=== PATIENT | male | born 1945 | race Caucasian/White ===

== ENCOUNTER → 2019-08-24 | Outpatient (CLI) | payer MEDICARE, OTHER ==
[~2019-08-24] MED LIST: ASPI325; ASPI81CH; ASPI81CH PO; ATOR40TA; CLOP75 PO; METO50ER PO; TICA90TA PO
[2019-08-24 16:20] LABS: BASOPHILS ABSOLUTE AUTO 0.05 K/mm3 (0.00-0.23); BASOPHILS PERCENT AUTO 1 % (0-2); EOSINOPHILS ABSOLUTE AUTO 0.12 K/mm3 (0.00-0.68); EOSINOPHILS PERCENT AUTO 2 % (0-6); Hematocrit 41.8 % (37.0-53.0); Hemoglobin 13.9 g/dL (13.5-17.5); IMMATURE GRAN ABSOLUTE AUTO 0.01 K/mm3 (0.00-0.10); IMMATURE GRAN PERCENT AUTO 0 % (0-1); LYMPHOCYTES ABSOLUTE AUTO 1.18 K/mm3 (0.84-5.20); LYMPHOCYTES PERCENT AUTO 18 % (21-46); MONOCYTES ABSOLUTE AUTO 0.58 K/mm3 (0.16-1.47); MONOCYTES PERCENT AUTO 9 % (4-13); Mean Corpuscular HGB 29.8 pg (26.0-34.0); Mean Corpuscular HGB Conc 33.3 g/dL (31.5-36.5); Mean Corpuscular Volume 90 fL (80-100); Mean Platelet Volume 9.6 fL (9.1-12.4); NEUTROPHILS ABSOLUTE AUTO 4.47 K/mm3 (1.96-9.15); NEUTROPHILS PERCENT AUTO 70 % (41-73); Platelet Count 203 K/mm3 (150-400); RDW Coefficient Variation 12.9 % (11.7-14.2); RDW Standard Deviation 41.8 fL (35.1-46.3); Red Blood Cell Count 4.66 M/mm3 (4.30-5.90); White Blood Cell Count 6.41 K/mm3 (4.00-11.30)
[2019-08-24 16:37] LABS: Anion Gap 6 mmol/L (6-16); Blood Urea Nitrogen 16 mg/dL (8-24); Bun/Creatinine Ratio 14.2 (12.0-20.0); CO2, Blood 31 mmol/L (21-32); Chloride, Blood 103 mmol/L (98-108); Creatinine, Blood 1.13 mg/dL (0.60-1.20); Glomerular Filtration Rate >60 (60-); Glucose, Blood 145 mg/dL (70-99); Potassium, Blood 4.1 mmol/L (3.5-5.5); Sodium, Blood 140 mmol/L (136-145); Thyroid Stimulating Hormone 2.188 uIU/mL (0.360-4.800)
[2019-08-24 16:44] LABS: Troponin I <0.017 ng/mL (0.000-0.040)
== END | disposition home or self-care (01) ==
LOC: LAB SHORT 16:14 → LAB EV 16:14
PROVIDERS: Physician Assistant Surgical
DX: M62.81 Muscle weakness (generalized) (principal); R22.42 Localized swelling, mass and lump, left lower limb
CPT/HCPCS: 80048; 83880; 84443; 84484; 85025

== ENCOUNTER → 2019-09-13 | Outpatient (CLI) | payer MEDICARE, OTHER ==
[2019-09-13 10:31] LABS: BASOPHILS ABSOLUTE AUTO 0.05 K/mm3 (0.00-0.23); BASOPHILS PERCENT AUTO 1 % (0-2); EOSINOPHILS ABSOLUTE AUTO 0.08 K/mm3 (0.00-0.68); EOSINOPHILS PERCENT AUTO 2 % (0-6); Hematocrit 40.3 % (37.0-53.0); Hemoglobin 13.7 g/dL (13.5-17.5); IMMATURE GRAN ABSOLUTE AUTO 0.01 K/mm3 (0.00-0.10); IMMATURE GRAN PERCENT AUTO 0 % (0-1); LYMPHOCYTES PERCENT AUTO 22 % (21-46); MONOCYTES ABSOLUTE AUTO 0.48 K/mm3 (0.16-1.47); MONOCYTES PERCENT AUTO 10 % (4-13); Mean Corpuscular HGB 30.1 pg (26.0-34.0); Mean Corpuscular Volume 89 fL (80-100); Mean Platelet Volume 9.7 fL (9.1-12.4); NEUTROPHILS ABSOLUTE AUTO 3.33 K/mm3 (1.96-9.15); NEUTROPHILS PERCENT AUTO 66 % (41-73); Platelet Count 214 K/mm3 (150-400); RDW Coefficient Variation 12.7 % (11.7-14.2); RDW Standard Deviation 40.9 fL (35.1-46.3); Red Blood Cell Count 4.55 M/mm3 (4.30-5.90); White Blood Cell Count 5.05 K/mm3 (4.00-11.30)
[2019-09-13 10:40] LABS: Alanine Aminotransfer (ALT/SGP 74 U/L (12-78); Albumin, Blood 3.7 g/dL (3.4-5.0); Albumin/Globulin Ratio 1.2 (0.8-1.8); Alk Phos 99 U/L (40-126); Anion Gap 8 mmol/L (6-16); Aspartate Aminotrans (AST/SGOT 31 U/L (12-37); Bilirubin, Total 1.1 mg/dL (0.1-1.0); Blood Urea Nitrogen 19 mg/dL (8-24); Bun/Creatinine Ratio 17.1 (12.0-20.0); CO2, Blood 29 mmol/L (21-32); Calcium, Blood 9.6 mg/dL (8.5-10.1); Chloride, Blood 101 mmol/L (98-108); Creatinine, Blood 1.11 mg/dL (0.60-1.20); Glomerular Filtration Rate >60 (60-); Glucose, Blood 202 mg/dL (70-99); Potassium, Blood 4.5 mmol/L (3.5-5.5); Sodium, Blood 138 mmol/L (136-145); Total Protein, Blood 6.7 g/dL (6.4-8.2)
[2019-09-13 11:03] LABS: Troponin I <0.017 ng/mL (0.000-0.040)
== END | disposition home or self-care (01) ==
LOC: LAB EV 10:21 → LAB SHORT 10:21
PROVIDERS: Physician Assistant
DX: J44.9 Chronic obstructive pulmonary disease, unspecified (principal); R00.1 Bradycardia, unspecified; R53.83 Other fatigue
CPT/HCPCS: 80053; 83880; 84443; 84484; 85025

== ENCOUNTER 2019-11-27 09:25 | Day surgery (SDC) | payer MEDICARE, OTHER ==
[~2019-11-27] VITALS: Ht 177.8 cm; Wt 114.0 kg
[~2019-11-27 09:25] MED LIST changes: -ASPI81CH; -ATOR40TA; +ATOR40TA PO; +LISI10 PO
--- NOTE | 2019-11-27 18:07 | NUR ---
[facility]END[facility] RECOVERY DAYSHIFT SUMMARY PATIENT ARRIVED FROM RECOVERY ROOM 4 HOURS POST PROCEDURE - LEFT UPPER CHEST WALL DUAL CHAMBER PACEMAKER SITE WNL WITH SURGICAL DRESSING IN PLACE AND NO S/SX OF BLEEDING. POST OF VITALS COMPLETED IN RECOVERY ROOM PER DYE PENETRANT TESTING TECHNICIAN. PATIENT DENIED PAIN T/O SHIFT. VSS, ON ROOM AIR. LUNG SOUND CLEAR. NO EDEMA NOTED. CALL LIGHT W/I REACH, PATIENT EDUCATED TO FALL PRECAUTIONS AND ROOM ORIENTATION. DENIES ANY NEEDS. ATE WELL. WILL CONTINUE TO MONITOR AND REPORT TO NOC SHIFT RN.
--- NOTE | 2019-11-28 05:34 | NUR ---
SHIFT SUMMARY PT SLEEPING IN ROOM COMFORTABLY AT THIS TIME. NO ACUTE CHANGES IN STATUS T/O NIGHT. PT SLEPT WELL DENIED NEEDS. PT INDEPENDENT IN ROOM TO RR. PT MEDCIATED ONCE WITH IV ABX. PACEMAKER SITE WNL, AND BANDAGE IN PLACE. PT AWARE OF EDUCATION ON NOT USING L ARM. REPS EVEN UNLABORED ON RA W/ SATS >92%. DENIED OTHER NEEDS CALL LIGHT IN REACH.
--- NOTE | 2019-11-28 11:30 | NUR ---
DISCHARGE INSTRUCTIONS GONE OVER WITH PT AND FAMILY. INSTRUCTED PT ON CARE OF NEW PACEMAKER AND PRECAUTIONS. INFORMED PT OF FOLLOW UP VISITS FOR PACEMAKER AND PT STATED UNDERSTANDING. BELONGINGS WERE GATHERED AND GIVEN TO PT'S . PT WAS ESCORTED OUT BY RN VIA WHEELCHAIR.
== END 2019-11-28 11:39 | disposition home or self-care (01) ==
LOC: MHTC 09:25 → PCU 14:23 → MHTC 11-28 11:39
DX: I49.5 Sick sinus syndrome (principal); I10 Essential (primary) hypertension; E78.5 Hyperlipidemia, unspecified; E66.9 Obesity, unspecified; J44.9 Chronic obstructive pulmonary disease, unspecified; I49.3 Ventricular premature depolarization; I25.10 Atherosclerotic heart disease of native coronary artery without angina pectoris; Z95.5 Presence of coronary angioplasty implant and graft; Z79.82 Long term (current) use of aspirin; Z79.899 Other long term (current) drug therapy; Z87.891 Personal history of nicotine dependence; Z68.36 Body mass index [BMI] 36.0-36.9, adult
CPT/HCPCS: 33208; 71045; 71046; 76937; 93005; 93010; 99152; 99153; A9270-GY; C1785; C1894; C1898; J0690; J1644; J2250; J3010; J7030; J7040

== ENCOUNTER → 2020-04-11 | Outpatient (CLI) | payer MEDICARE, OTHER ==
[~2020-04-11] MED LIST changes: +METO100ER PO; +Nitroglycerin1 EAC3 TOP
[2020-04-11 11:00] LABS: BASOPHILS ABSOLUTE AUTO 0.04 K/mm3 (0.00-0.23); BASOPHILS PERCENT AUTO 1 % (0-2); EOSINOPHILS ABSOLUTE AUTO 0.07 K/mm3 (0.00-0.68); EOSINOPHILS PERCENT AUTO 1 % (0-6); Hematocrit 41.2 % (37.0-53.0); Hemoglobin 13.7 g/dL (13.5-17.5); IMMATURE GRAN ABSOLUTE AUTO 0.02 K/mm3 (0.00-0.10); IMMATURE GRAN PERCENT AUTO 0 % (0-1); LYMPHOCYTES ABSOLUTE AUTO 0.89 K/mm3 (0.84-5.20); LYMPHOCYTES PERCENT AUTO 15 % (21-46); MONOCYTES ABSOLUTE AUTO 0.54 K/mm3 (0.16-1.47); MONOCYTES PERCENT AUTO 9 % (4-13); Mean Corpuscular HGB Conc 33.3 g/dL (31.5-36.5); Mean Corpuscular Volume 90 fL (80-100); Mean Platelet Volume 10.3 fL (9.1-12.4); NEUTROPHILS ABSOLUTE AUTO 4.21 K/mm3 (1.96-9.15); NEUTROPHILS PERCENT AUTO 73 % (41-73); Platelet Count 184 K/mm3 (150-400); RDW Coefficient Variation 12.6 % (11.7-14.2); RDW Standard Deviation 41.1 fL (35.1-46.3); Red Blood Cell Count 4.57 M/mm3 (4.30-5.90); White Blood Cell Count 5.77 K/mm3 (4.00-11.30)
[2020-04-11 11:18] LABS: Alanine Aminotransfer (ALT/SGP 46 U/L (12-78); Albumin, Blood 3.6 g/dL (3.4-5.0); Albumin/Globulin Ratio 1.2 (0.8-1.8); Alk Phos 101 U/L (40-126); Anion Gap 6 mmol/L (6-16); Aspartate Aminotrans (AST/SGOT 20 U/L (12-37); Blood Urea Nitrogen 10 mg/dL (8-24); Bun/Creatinine Ratio 10.6 (12.0-20.0); CO2, Blood 30 mmol/L (21-32); Calcium, Blood 8.9 mg/dL (8.5-10.1); Chloride, Blood 102 mmol/L (98-108); Creatinine, Blood 0.94 mg/dL (0.60-1.20); Free Thyroxine 1.02 ng/dL (0.70-1.60); Globulin, Blood 3.1 g/dL (2.2-4.0); Glomerular Filtration Rate >60 (60-); Glucose, Blood 202 mg/dL (70-99); Potassium, Blood 4.3 mmol/L (3.5-5.5); Sodium, Blood 138 mmol/L (136-145); Thyroid Stimulating Hormone 2.452 uIU/mL (0.360-4.800); Total Protein, Blood 6.7 g/dL (6.4-8.2)
== END | disposition home or self-care (01) ==
LOC: LAB SHORT 10:55
PROVIDERS: General Practice
DX: H83.09 Labyrinthitis, unspecified ear (principal); R53.81 Other malaise
CPT/HCPCS: 80053; 83880; 84439; 84443; 85025

== ENCOUNTER 2020-07-16 06:26 | Day surgery (SDC) | payer MEDICARE, OTHER ==
[~2020-07-16] VITALS: Ht 177.8 cm; Wt 109.0 kg
--- NOTE | 2020-07-16 09:05 | NUR ---
PATIENT RETURNED TO THE [facility] POST CORONARY ANGIOGRAM. NO NEW STENTS OR INTERVENTION PERFORMED. TR BAND TO THE RIGHT RADIAL WITH 12 ML OF AIR IN THE BAND PLACED AT 0845. PATIENT IN A RECLINER AND PLACED ON THE MONITOR AND CALL LIGHT IN REACH. VVS. NO PAIN NOTED. PATIENT CALLED HIS AND UPDATED HER THAT HE WAS BACK IN RECOVERY. SHE WILL COME TO THE BEDSIDE. PATIENT IN A RECLINER.
--- NOTE | 2020-07-16 09:40 | NUR ---
AT THE BEDSIDE, FINISHING BREAKFAST TRAY.
--- NOTE | 2020-07-16 10:40 | NUR ---
REMAINS AT THE BEDSIDE. BEGAN TAKING AIR FORM THE TR BAND. NO BLEEDING NOTED. WILL CONTINUE TO MONITOR.
--- NOTE | 2020-07-16 10:44 | NUR ---
TEACHING DONE AT THE BEDSIDE FOR DISCHARGE INSTRUCTIONS. EXPLAINED TO THE PATIENT AND . ALL QUESTIONS ANSWERED AND COPIES GIVEN. CONTINUE TO TAKE AIR FROM THE TR BAND AND NO BLEEDING NOTED.
--- NOTE | 2020-07-16 10:52 | NUR ---
TR BAND FLAT. AT THE BEDSIDE AND PATIENT ALLOWED UP. DRESSING AND TO THE RESTROOM WITH ASSISTANCE FROM . NO BENDING THE RIGHT WRIST. PIV REMOVED AND PRESSURE DRESSING APPLIED.
--- NOTE | 2020-07-16 11:22 | NUR ---
TR BAND REMOVED AND SITED CLEANED. CLOTH DOT PLACED AND WHITE BOARD REPLACED TO THE RIGHT WRIST. NO PAIN NOTED. NO BLEEDING NOTED. ALL BELONGING RETAINED BY THE PATIENT. PATIENT WHEELCHAIRED TO THE EXIT AND DRIVING HOME. DISHCARGED WITH INSTRUCTIONS AND FOLLOW UP APPOINTMENT.
== END 2020-07-16 11:00 | disposition home or self-care (01) ==
LOC: MHTC 06:26
DX: I25.10 Atherosclerotic heart disease of native coronary artery without angina pectoris (principal); J44.9 Chronic obstructive pulmonary disease, unspecified; E78.5 Hyperlipidemia, unspecified; I10 Essential (primary) hypertension; E66.01 Morbid (severe) obesity due to excess calories; Z68.34 Body mass index [BMI] 34.0-34.9, adult; Z79.82 Long term (current) use of aspirin; Z87.891 Personal history of nicotine dependence; Z95.5 Presence of coronary angioplasty implant and graft; Z95.0 Presence of cardiac pacemaker
CPT/HCPCS: 93458; 99152; 99153; C1769; C1894; J1644; J2250; J3010; J7030; J7050; Q9967

== ENCOUNTER → 2020-12-01 | Outpatient (CLI) | payer MEDICARE ==
[2020-12-01 09:56] LABS: BASOPHILS ABSOLUTE AUTO 0.05 K/mm3 (0.00-0.23); BASOPHILS PERCENT AUTO 1 % (0-2); EOSINOPHILS ABSOLUTE AUTO 0.08 K/mm3 (0.00-0.68); EOSINOPHILS PERCENT AUTO 1 % (0-6); Hematocrit 42.1 % (37.0-53.0); IMMATURE GRAN ABSOLUTE AUTO 0.03 K/mm3 (0.00-0.10); IMMATURE GRAN PERCENT AUTO 0 % (0-1); LYMPHOCYTES PERCENT AUTO 12 % (21-46); MONOCYTES ABSOLUTE AUTO 0.76 K/mm3 (0.16-1.47); MONOCYTES PERCENT AUTO 11 % (4-13); Mean Corpuscular HGB 30.2 pg (26.0-34.0); Mean Corpuscular HGB Conc 33.3 g/dL (31.5-36.5); Mean Corpuscular Volume 91 fL (80-100); NEUTROPHILS ABSOLUTE AUTO 5.45 K/mm3 (1.96-9.15); NEUTROPHILS PERCENT AUTO 75 % (41-73); Platelet Count 212 K/mm3 (150-400); RDW Coefficient Variation 13.2 % (11.7-14.2); RDW Standard Deviation 43.9 fL (35.1-46.3); Red Blood Cell Count 4.63 M/mm3 (4.30-5.90); White Blood Cell Count 7.27 K/mm3 (4.00-11.30)
[2020-12-01 10:08] LABS: Anion Gap 8 mmol/L (6-16); Blood Urea Nitrogen 15 mg/dL (8-24); Bun/Creatinine Ratio 13.9 (12.0-20.0); CO2, Blood 29 mmol/L (21-32); Calcium, Blood 9.2 mg/dL (8.5-10.1); Chloride, Blood 101 mmol/L (98-108); Creatinine, Blood 1.08 mg/dL (0.60-1.20); Glomerular Filtration Rate >60 (60-); Glucose, Blood 129 mg/dL (70-99); Potassium, Blood 4.6 mmol/L (3.5-5.5); Sodium, Blood 138 mmol/L (136-145)
[2020-12-01 10:09] LABS: Troponin I <0.017 ng/mL (0.000-0.040)
== END | disposition home or self-care (01) ==
LOC: LAB 09:51 → LAB SHORT 09:51
PROVIDERS: Family Medicine
DX: R60.0 Localized edema (principal)
CPT/HCPCS: 80048; 83880; 84484; 85025; 85379